=== PATIENT | male | born 1985 | race Caucasian/White ===

== ENCOUNTER 2019-11-07 15:58 | Emergency (ER) | payer BC, SELFPAY ==
--- NOTE | ~2019-11-07 | CT_ITS ---
EXAMINATION: CT BRAIN W/O DATE: 11/07/2019 19:03 INDICATION: Left-sided facial numbness TECHNIQUE: Computed tomography (CT) of the head was performed without intravenous contrast. The dose- length product was 681.00 mGy-cm. The mA was adjusted according to patient size. Iterative reconstruc tion technique was employed. COMPARISON: No prior studies for comparison. FINDINGS: Normal brain parenchymal volume for age. Normal hauser-white differentiation. No acute intrac ranial hemorrhage, infarction, mass or mass effect. No ventriculomegaly or midline shift. Midline sagittal images demonstrate a normal corpus callosum, c raniovertebral junction and sella turcica. Basilar cisterns are patent. Mild mucosal thickening of the ethmoid and sphenoid sinuses. No depressed skull fractures. IMPRESSION: 1. No acute intracranial abnormality. Reviewed, dictated and finalized at location A.
[2019-11-07 16:04] VITALS: BP 128/84; PULSE 102; RESP 18; TEMP 36.7; O2SAT 100
[2019-11-07 18:09] LABS: Basophils Absolute Auto 0.1 K/mm3 (0.0-0.1); Basophils Percent Auto 1.1 % (0.2-1.2); Eosinophils Absolute Auto 0.2 K/mm3 (0-0.3); Eosinophils Percent Auto 2.2 % (0-4.4); Hematocrit 49.9 % (42.0-52.0); Hemoglobin 16.9 g/dL (14.0-18.0); Immature Granulocyte Absolute 0.02 K/mm3 (0.00-0.031); Immature Granulocyte Percent A 0.2 % (0-0.5); Lymphocytes Absolute Auto 2.67 K/mm3 (0.9-3.2); Lymphocytes Percent Auto 28.1 % (18.3-44.2); Mean Corpuscular HGB Conc 33.9 g/dl (32-36); Mean Corpuscular Hemoglobin 30.2 pg (26-34); Mean Corpuscular Volume 89.1 fl (80-100); Mean Platelet Volume 10.8 fl (7.4-10.4); Monocytes Absolute Auto 0.7 K/mm3 (0.1-0.6); Monocytes Percent Auto 7.8 % (2.6-8.5); Neutrophils Absolute Auto 5.8 K/mm3 (1.3-6.7); Neutrophils Percent Auto 60.6 % (45.5-73.1); Platelet Count Result 286 k/mm3 (150-375); Red Cell Distribution Width 12.6 % (11.5-14.5); White Blood Count 9.5 K/mm3 (4.5-10.0)
[2019-11-07 18:14] LABS: Add Urine Microscopic? YES; Appearance Urine Clear (Clear); Bacteria Urine Trace /hpf; Bilirubin Urine Negative (Negative); Blood Urine Negative (Negative); Color Urine Yellow (Yellow); Glucose Urine UA Negative (Negative); Ketones Urine Negative (Negative); Leukocyte Esterase Ur Negative LEU/UL (Negative); Mucus Urine Rare /lpf; Nitrate Urine Negative (Negative); Protein Urine Negative (Negative); RBC Urine 0-2 /hpf (0-2); Specific Grav Ur 1.028 (1.001-1.035); WBC Urine 0-3 /hpf
[2019-11-07] MEDS: SODIUM CHLORIDE 0.9% IV 1,000 ML 999 ML IV CONT (18:14)
[2019-11-07 18:19] LABS: INR 0.9; Partial Thromboplastin Time 27.9 SECONDS (22.3-36.8)
[2019-11-07 18:21] LABS: Alanine Aminotransferase 31 U/L (4-50); Albumin Level 5.1 g/dL (3.5-5.1); Alkaline Phosphatase 73 U/L (38-126); Aspartate Amino Transferase 27 U/L (17-59); Bilirubin,Total 1.2 mg/dL (0.2-1.3); Blood Urea Nitrogen 15 mg/dL (9-20); Calcium 9.5 mg/dL (8.4-10.2); Carbon Dioxide 28 mmol/L (22-30); Chloride 102 mmol/L (98-107); Estimated CRCL calculation 85 ml/min; Estimated Glomerular Filt Rate > 60; Glucose 90 mg/dL (75-110); Potassium 4.5 mmol/L (3.4-5.0); Sodium 141 mmol/L (137-145)
--- NOTE | 2019-11-07 18:25 | PC.NURSE ---
Pt's anxiety level has increased since IV placed. Pt asking numerous times so how long does this stay in there? and sitting stiffly on the stretcher. Tolerated procedure well and calms with repeated support and explanations.
[2019-11-07 18:27] LABS: Amphetamine Screen Urine Negative (Negative); Barbiturate Screen Urine Negative (Negative); Benzodiazepines Screen Urine Negative (Negative); Cannabinoid Screen Urine Positive (Negative); Cocaine Screen Urine Negative (Negative); Methadone Screen Urine Negative (Negative); Opiate Screen Urine Negative (Negative); Phencyclidine Screen Urine Negative (Negative)
--- NOTE | 2019-11-07 19:13 | PC.NURSE ---
Report to [facility], to continue care. Awaiting disposition.
--- NOTE | 2019-11-07 19:20 | ED.GENADULT ---
HPI - General Adult General Chief complaint: Neuro Symptoms/Deficit <Jose Garcia PA-C - Last Filed: 11/07/19 19:26> Stated complaint: numbness on left side of face <Jose Garcia PA-C - Last Filed: 11/07/19 19:26> Time Seen by Provider: 11/07/19 16:39 <Jose Garcia PA-C - Last Filed: 11/07/19 19:26> Source: patient <Jose Garcia PA-C - Last Filed: 11/07/19 19:26> Mode of arrival: ambulatory <JUDY Lainez Last Filed: 11/07/19 19:26> Limitations: no limitations <JUDY Lainez Last Filed: 11/07/19 19:26> History of Present Illness HPI narrative: Patient is a 34-year-old male who presents to emergency department for evaluation of numbness and tingling that is been going on and off for the last week become more persistent over the last several days went to an urgent care was directed to emergency department. Patient denies any focal neurologic deficits has not been seen for this complaint has not taken anything for his symptoms <Jose Garcia PA-C - Last Filed: 11/07/19 19:26> Related Data Home medications: Home Medications Medication Instructions Recorded Confirmed No Home Medications 10/27/19 10/27/19 <Jose Garcia PA-C - Last Filed: 11/07/19 19:26> Allergies/adverse reactions: Allergies Allergy/AdvReac Type Severity Reaction Status Date / Time No Known Allergies Allergy Verified 11/07/19 16:35 <Jose Garcia PA-C - Last Filed: 11/07/19 19:26> Review of Systems Review of Systems: All systems reviewed & are unremarkable except as noted in HPI and below <Jose Garcia PA-C - Last Filed: 11/07/19 19:26> PMFSH Social History Social History: Social History Smoking status: Never smoker Gender identity (if verbalized by the patient): Male <JUDY Lainez Last Filed: 11/07/19 19:26> Exam Narrative: Exam Narrative: GENERAL: Well-appearing, well-nourished, and in no acute distress. HEAD: Normocephalic, atraumatic. EYES: PERRLA and EOMI. ENT: Nares clear, no rhinorrhea or epistaxis. Mucous membranes moist. Oropharynx without tonsillar hypertrophy exudate or other lesions. NECK: Supple. No adenopathy or masses. No carotid bruits or JVD CHEST: Clear to auscultation. No respiratory distress. No wheezes rales or rhonchi HEART: Regular rate and rhythm. No murmur heard. EXTREMITIES: Normal range of motion. No edema. SKIN: Warm, dry, no rash. NEURO: No focal deficits. Alert and oriented x3. Cranial nerves II through XII grossly intact. Normal speech and gait. Cerebellar intact PSYCH: Normal mood and affect. <JUDY Lainez Last Filed: 11/07/19 19:26> Course Course Emergency Course: Patient in the room in no distress aware of case findings treatment plan and diagnosis <JUDY Lainez Last Filed: 11/07/19 19:26> Vital Signs Vital signs: Vital Signs Temperature 98.1 F 11/07/19 16:04 Pulse Rate 102 H 11/07/19 16:04 Respiratory Rate 18 11/07/19 16:04 Blood Pressure 128/84 11/07/19 16:04 Pulse Oximetry 100 11/07/19 16:04 Temperature 98.1 F 11/07/19 16:04 Pulse Rate 72 11/07/19 19:43 Respiratory Rate 18 11/07/19 19:43 Blood Pressure 132/70 11/07/19 19:43 Pulse Oximetry 98 11/07/19 19:43 <JUDY Lainez Last Filed: 11/07/19 19:26> Vital Signs Temperature 98.1 F 11/07/19 16:04 Pulse Rate 102 H 11/07/19 16:04 Respiratory Rate 18 11/07/19 16:04 Blood Pressure 128/84 11/07/19 16:04 Pulse Oximetry 100 11/07/19 16:04 Temperature 98.1 F 11/07/19 16:04 Pulse Rate 72 11/07/19 19:43 Respiratory Rate 18 11/07/19 19:43 Blood Pressure 132/70 11/07/19 19:43 Pulse Oximetry 98 11/07/19 19:43 <Essie Oconnor MD - Last Filed: 11/08/19 10:50> Medical Decision Making MDM Narrative Medical decision making narrative
[2019-11-07 19:43] VITALS: BP 132/70; PULSE 72; RESP 18; O2SAT 98
== END 2019-11-07 19:44 | disposition home or self-care (01) ==
PROVIDERS: Emergency Medicine Emergency Medical Services; Emergency Provider Emergency Medicine; PCP Family Medicine
DX: R20.2 Paresthesia of skin (principal)
CPT/HCPCS: 36415; 70450; 80053; 80307; 81001; 85025; 85610; 85730; 96361; 96374; 99284; J0131; J7030

== ENCOUNTER 2020-10-18 17:08 | Emergency (ER) | payer BC, SELFPAY ==
[2020-10-18 17:12] VITALS: BP 146/90; PULSE 93; RESP 16; TEMP 36.2; O2SAT 99
--- NOTE | 2020-10-18 21:12 | ED.GENADULT ---
HPI - General Adult General Chief complaint: Unspecified Stated complaint: NOSE AND MOUTH AREA TINGLING Time Seen by Provider: 10/18/20 17:18 History of Present Illness HPI narrative: Patient is a 35-year-old gentleman who presents the emergency department with chief complaint of paresthesias around the nose. The patient states this been going on for about a week the patient states this progressed to his upper lip patient states that it feels as though the skin is smoother than normal. The patient denies fever denies chills denies focal deficit. Patient states that he did have chickenpox as a child reports that he has no visual changes Related Data Allergies Allergy/AdvReac Type Severity Reaction Status Date / Time No Known Allergies Allergy Verified 02/03/20 13:42 Review of Systems Review of Systems: Narrative: A 10 system review of systems was completed on the patient and is negative except for what is stated in the HPI. Nursing and ancillary documentation was reviewed. [facility] Social History Social History Smoking status: Never smoker Gender identity (if verbalized by the patient): Male Exam Narrative: Exam Narrative: GENERAL: Well-appearing, well-nourished, and in no acute distress. HEAD: Normocephalic, atraumatic. EYES: PERRLA and EOMI. ENT: Nares clear, no rhinorrhea or epistaxis. Mucous membranes moist. There is a small vesicle lesion present on the septum of the right nostril NECK: Supple. CHEST: Clear to auscultation. No respiratory distress. HEART: Regular rate and rhythm. No murmur heard. Normal peripheral pulses. ABDOMEN: Soft, nontender, nondistended, normal active bowel sounds. EXTREMITIES: Normal range of motion. No edema. SKIN: Warm, dry, no rash. NEURO: No focal deficits. Alert and oriented x3. PSYCH: Normal mood and affect. Course Course Emergency Course: The patient has no focal neurological deficit. Given that there is a small vesicular lesion and with the burning sensation and change in sensation in the area concerning for possible shingles. The patient will be started on valacyclovir and instructed for short-term follow-up with his primary care physician. Vital Signs Vital signs: Vital Signs Temperature 36.2 C L 10/18/20 17:12 Pulse Rate 93 10/18/20 17:12 Respiratory Rate 16 10/18/20 17:12 Blood Pressure 146/90 H 10/18/20 17:12 Pulse Oximetry 99 10/18/20 17:12 Temperature 36.2 C L 10/18/20 17:12 Pulse Rate 93 10/18/20 17:12 Respiratory Rate 16 10/18/20 17:12 Blood Pressure 146/90 H 10/18/20 17:12 Pulse Oximetry 99 10/18/20 17:12 Medical Decision Making Vital Signs Vital Signs: Vital Signs Temperature 36.2 C L 10/18/20 17:12 Pulse Rate 93 10/18/20 17:12 Respiratory Rate 16 10/18/20 17:12 Blood Pressure 146/90 H 10/18/20 17:12 Pulse Oximetry 99 10/18/20 17:12 Temperature 36.2 C L 10/18/20 17:12 Pulse Rate 93 10/18/20 17:12 Respiratory Rate 16 10/18/20 17:12 Blood Pressure 146/90 H 10/18/20 17:12 Pulse Oximetry 99 10/18/20 17:12 Discharge Plan Discharge Clinical Impression: Facial paresthesia Patient Disposition: Home, Self-Care Condition: Stable Instructions: Antibiotic Form, Shingles (ED), Paresthesia (ED) Prescriptions: New valacyclovir [Valtrex] 1 gram tablet 1,000 mg PO TID Qty: 21 RF: 0 No Action hydrocortisone acetate [Anucort-HC] 25 mg suppository 25 mg RECTAL BID Qty: 24 RF: 0 Follow-up/Referrals: Sushant Schwartz MD [Primary Care Provider] - Time of Disposition: 21:18
[2020-10-18 21:33] VITALS: BP 135/97; PULSE 85; RESP 16; O2SAT 95
[2020-10-18] MEDS: valACYclovir HCL 500 MG TABLET 1000 MG PO (21:35)
== END 2020-10-18 21:38 | disposition home or self-care (01) ==
PROVIDERS: Emergency Provider Emergency Medicine; PCP Family Medicine
DX: R20.2 Paresthesia of skin (principal)
CPT/HCPCS: 99283; A9270

== ENCOUNTER 2020-11-27 15:16 | Emergency (ER) | payer BC, SELFPAY ==
[2020-11-27] VITALS (7 sets, daily range): BP systolic 69–116; BP diastolic 45–77; PULSE 75–90; RESP 13–20; TEMP 36.2; O2SAT 99–100
--- NOTE | 2020-11-27 15:27 | ECG_ITS ---
Measurements Intervals [place] Rate: 85 P: 37 SD: 152 QRS: 85 QRSD: 94 T: 54 QT: 373 QTc: 446 Interpretive Statements SINUS RHYTHM ST ELEVATION IN ANTEROLATERAL LEADS- PROBABLY EARLY REPOLARIZATION ABNORMALITY MINIMAL Q WAVES- INFERIOR LEADS BASELINE ARTIFACT- AVR, AVL, AVF BORDERLINE ECG Electronically Signed On 11-27-2020 21:14:38 CDT by Suresh Jiang D.O.
[2020-11-27 15:41] LABS: Basophils Absolute Auto 0.1 K/mm3 (0.0-0.1); Basophils Percent Auto 0.9 % (0.2-1.2); Eosinophils Absolute Auto 0.1 K/mm3 (0-0.3); Eosinophils Percent Auto 2.2 % (0-4.4); Hematocrit 48.5 % (42.0-52.0); Hemoglobin 16.4 g/dL (14.0-18.0); Immature Granulocyte Absolute 0.02 K/mm3 (0.00-0.031); Immature Granulocyte Percent A 0.3 % (0-0.5); Lymphocytes Percent Auto 27.9 % (18.3-44.2); Mean Corpuscular HGB Conc 33.8 g/dl (32-36); Mean Corpuscular Hemoglobin 29.7 pg (26-34); Mean Corpuscular Volume 87.9 fl (80-100); Mean Platelet Volume 9.9 fl (7.4-10.4); Monocytes Absolute Auto 0.4 K/mm3 (0.1-0.6); Monocytes Percent Auto 6.2 % (2.6-8.5); Neutrophils Percent Auto 62.5 % (45.5-73.1); Platelet Count Result 257 k/mm3 (150-375); Red Blood Count 5.52 M/mm3 (4.6-6.20); Red Cell Distribution Width 13.1 % (11.5-14.5); White Blood Count 6.5 K/mm3 (4.5-10.0)
[2020-11-27 15:57] LABS: Anion Gap 15 mmol/L (8-16); Blood Urea Nitrogen 14 mg/dL (9-20); Calcium 9.7 mg/dL (8.4-10.2); Carbon Dioxide 23 mmol/L (22-30); Chloride 101 mmol/L (98-107); Estimated CRCL calculation 73 ml/min; Estimated Glomerular Filt Rate > 60; Glucose 157 mg/dL (65-110); Potassium 3.8 mmol/L (3.4-5.0); Sodium 139 mmol/L (137-145)
--- NOTE | 2020-11-27 18:37 | ED.DIZZY ---
HPI - Dizziness General Chief Complaint: Syncope Stated Complaint: NEAR SYNCOPE, TINGLING FOR OVER 2WKS Time Seen by Provider: 11/27/20 18:26 History of Present Illness HPI Narrative: Patient is a 35-year-old male who presents ER with near syncope. Patient reports he is in the waiting room to have an outpatient blood draw performed when he felt like he was going to pass out and things are starting to go black. He reports he then had his name called and he snapped out of it almost immediately. He reports when they went to draw his blood they thought he was white and thought he should come to the ER to be evaluated after consulting with the urgent care connected to [facility]. Patient is having no chest pain or shortness of breath or nausea or vomiting. Reports he did have some intermittent tingling in his arms over last couple weeks and is unsure why. Recently was treated for shingles in his nose. Patient also reports that the dizziness was nonrotational and without any nausea or vomiting. Patient has had nothing to eat or drink today. Related Data Home Medications Medication Instructions Recorded Confirmed No Home Medications 10/31/20 10/31/20 Allergies Allergy/AdvReac Type Severity Reaction Status Date / Time No Known Allergies Allergy Verified 11/27/20 18:23 Review of Systems Review of Systems: All systems reviewed & are unremarkable except as noted in HPI and below Constitutional: Constitutional: Denies chills, Denies fever(s) and Denies weakness ENT: Reports dizziness, Denies nasal congestion and Denies sore throat Cardiovascular: Cardiovascular: Denies chest pain and Denies radiating jaw, neck or arm pain Gastrointestinal: Gastrointestinal: Denies nausea and Denies vomiting Neurologic: Denies headache(s), Denies focal weakness and Reports numbness Comments: Near syncope [facility] Past Medical History Medical History (Updated 11/27/20 @ 21:03 by Rome Ballard MD) Esophageal reflux Surgical History Surgical History (Updated 11/27/20 @ 21:00 by Rome Ballard MD) No pertinent past surgical history Family History Family History (Updated 10/31/20 @ 09:16 by Maryjane Jang CMA) Mother Breast cancer Depression Social History Social History (Updated 10/31/20 @ 09:17 by Maryjane Jang CMA) Second hand tobacco smoke exposure: No Alcohol intake: never Substance use: former Gender identity (if verbalized by the patient): Male Exam Narrative: Exam Narrative: GENERAL: Well-appearing, well-nourished, and in no acute distress. HEAD: Normocephalic, atraumatic. EYES: PERRL and EOMI. ENT: Mucous membranes moist. Cerumen impaction bilaterally. TMs normal after evacuation of cerumen. CHEST: Clear to auscultation. No respiratory distress. HEART: Regular rate and rhythm. Normal peripheral pulses. ABDOMEN: Soft, nontender, nondistended. EXTREMITIES: Normal range of motion. No edema. SKIN: Warm, dry, no rash. NEURO: Alert and oriented x3. Normal coordination and no sensory deficit. Clear speech. Course Course Emergency Course: Patient with slight drop in orthostatics from sitting to standing. Asymptomatic. Hydrated. Earwax removed. Discharge home. Reevaluation(s) Reevaluation #1: Patient's blood pressure 69/48 is not accurate. I have readjusted the patient's blood pressure cuff and his blood pressure is 115/64 mmHg with a heart rate of 82. Date: 11/27/20 Time: 18:38 Vital Signs Vital signs: Vital Signs Temperature 97.2 F L 11/27/20 15:20 Pulse Rate 85 11/27/20 15:20 Respiratory Rate 18 11/27/20 15:20 Blood Pressure 105/45 L 11/27/20 15:20 Pulse Oximetry 100 11/27/20 15:20 Temperature 97.2 F L 11/27/20 15:20 Pulse Rate 78 11/27/20 20:11 Respiratory Rate 20 11/27/20 20:11 Blood Pressure 116/70 11/27/20 20:11 Pulse Oximetry 99 11/27/20 20:11 Procedures Ear Wax Removal Both Ears: Ear Wax Removal Date: 11/27/20 Ear
[2020-11-27] MEDS: SODIUM CHLORIDE 0.9% IV 1,000 ML 999 ML IV CONT (18:45)
== END 2020-11-27 21:38 | disposition home or self-care (01) ==
PROVIDERS: Emergency Provider Emergency Medicine; PCP Family Medicine
DX: R55 Syncope and collapse (principal); H61.23 Impacted cerumen, bilateral; K21.9 Gastro-esophageal reflux disease without esophagitis
CPT/HCPCS: 36415; 69210; 80048; 85025; 93005; 96360; 99284; J7030

== ENCOUNTER → 2023-02-04 10:50 | Outpatient (CLI) | payer BC, SELFPAY ==
--- NOTE | ~2023-02-04 | XR_ITS ---
XR chest 2V DATE: 02/04/2023 10:58 INDICATION: Chest pain TECHNIQUE: 2 views COMPARISON: None FINDINGS: Normal heart size. No hilar or mediastinal enlargement. No pulmonary infiltrate or consolid ation, pleural effusion or pulmonary vascular congestion or pneumothorax is detected. IMPRESSION: No active cardiopulmonary disease Reviewed, dictated and finalized at location B.
== END ==
PROVIDERS: PCP Family Medicine; Visit Provider Family Medicine
DX: R07.9 Chest pain, unspecified (principal)
CPT/HCPCS: 71046

== ENCOUNTER 2023-02-26 08:52 | Outpatient (CLI) | payer BC, SELFPAY ==
--- NOTE | ~2023-02-26 | NM_ITS ---
EXAMINATION: NM alexey stress w perfusion DATE: 02/26/2023 12:14 INDICATION: Chest pain TECHNIQUE: Rest images were obtained following intravenous administration of 10.0 mCi Tc99m tetrofosm in (Myoview). The patient was infused intravenously with Lexiscan (Regadenoson). Then, 80.4 mCi Tc99m tetrofosmin (Myoview) was administered intravenously, and stress images were obtained. Data was zoey nstructed into short axis and horizontal and vertical long axis SPECT images. Gated SPECT images were also obtained. COMPARISON: None. FINDINGS: There is no definite reversible or fixed perfusion abnormality to suggest ischemia or infar ction. There is normal left ventricular chamber size, wall motion and ejection fraction. Left ventr icular ejection fraction measures 56%. IMPRESSION: 1. Normal myocardial perfusion during stress. 2. Left ventricular ejection fraction measuring 56%. Reviewed, dictated and finalized at location A.
--- NOTE | 2023-02-26 09:03 | EST_ITS ---
Patient Info Name: Sukhjinder Fulton Age: 37 years : 1985 Gender: Male Ht: 69 in Wt: 185 lbs BSA: 2.04 m2 HR: 68 bpm BP: 129 / 81 mmHg Heart Rhythm: Left Bundle Branch Block Exam Date: 02/26/2023 10:55 AM Exam Location: [facility] Stress Patient Status: Outpatient Admit Date: 02/26/2023 Staff Ordering Physician: Sushant Schwartz MD Attending Provider: Sushant Schwartz MD Exercise Technologist: Virginia Morales CT Exam Type: CA stress alexey w NM Study Info Indications R07.89 - Other chest pain A regadenoson stress test was performed. Summary 1. 1. Inconclusive lexiscan stress test for ischemic ST changes by ECG criteria due to baseline LBBB. 2. 2. Stable hemodynamics throughout the test. 3. 3. Nuclear scan to follow and will be reported separately. Please correlate with it. 4. 4. Patient informed of the above results. Protocol: Lexiscan Stress ECG Details Stage: REST Duration (min): 0 min : 50 sec HR (bpm): 70 SBP (mmHg): 129 DBP (mmHg): 81 Stage: REST Duration (min): 22 min : 44 sec HR (bpm): 68 SBP (mmHg): 129 DBP (mmHg): 81 Stage: STAGE 1 Duration (min): 1 min : 0 sec HR (bpm): 96 SBP (mmHg): 130 DBP (mmHg): 84 Stage: RECOVERY Duration (min): 1 min : 0 sec HR (bpm): 105 SBP (mmHg): 130 DBP (mmHg): 84 Stage: RECOVERY Duration (min): 2 min : 0 sec HR (bpm): 93 SBP (mmHg): 130 DBP (mmHg): 84 Stage: RECOVERY Duration (min): 3 min : 0 sec HR (bpm): 94 SBP (mmHg): 132 DBP (mmHg): 84 Stage: RECOVERY Duration (min): 3 min : 42 sec HR (bpm): 92 SBP (mmHg): 132 DBP (mmHg): 84 Rest HR: 68 bpm Peak HR: 113 bpm Rest Sys BP: 129 mmHg Peak Sys BP: 132 mmHg Max Pred HR: 182 bpm % Max Pred HR: 62 % Target HR: 155 bpm Max RPP: 14,916 bpm*mmHg Termination Reason: Completed protocol Cardiac Symptoms: Shortness of breath Total Time: 1 min : 0 sec Rest [place] BP: 81 mmHg Peak [place] BP: 84 mmHg Total Dose: 0.4 mg Resting ECG Sinus rhythm, intermittent LBBB. Stress ECG No ST changes. Arrhythmias None. Report Signatures
== END 2023-02-26 08:53 | disposition home or self-care (01) ==
PROVIDERS: PCP Family Medicine; Visit Provider Family Medicine
DX: R93.1 Abnormal findings on diagnostic imaging of heart and coronary circulation (principal); R07.9 Chest pain, unspecified
CPT/HCPCS: 78452; 93017; A9502; J2785

== ENCOUNTER 2023-11-12 12:51 | Emergency (ER) | payer BC, SELFPAY ==
--- NOTE | ~2023-11-12 | XR_ITS ---
EXAMINATION: XR chest 2V 11/12/2023 13:29 INDICATION: Choking incident. PROCEDURE: 2 view chest COMPARISON: 02/04/2023 FINDINGS: The lungs are clear. The cardiomediastinal silhouette is within normal limits. There are no pleural effusions. There is no pneumothorax suspected. IMPRESSION: 1: NO ACUTE CARDIOPULMONARY DISEASE. Reviewed, dictated and finalized at location B.
[2023-11-12 12:52] VITALS: BP 130/95; PULSE 109; RESP 16; TEMP 36.6; O2SAT 98
--- NOTE | 2023-11-12 13:53 | ED.GENADULT ---
HPI - General Adult General Chief complaint: Unspecified Stated complaint: food bolus Time Seen by Provider: 11/12/23 13:30 History of Present Illness HPI narrative: 38-year-old male presents to the emergency room for evaluation of a suspected Swallowed foreign body. patient states that he was laying down while using a hamburger, began choking. Patient states that he choked and coughed up a hamburger. States since then he feels like there is food still lodged in his throat and in his lungs. Patient denies any shortness of breath or difficulty breathing. Patient is able to tolerate solids and fluids following the incident. Patient reports excessive belching. Related Data Home Medications Medication Instructions Recorded Confirmed aspirin 325 mg tablet (Gume 650 mg PO DAILY 11/10/23 Aspirin) Allergies Allergy/AdvReac Type Severity Reaction Status Date / Time No Known Allergies Allergy Verified 11/12/23 12:55 Review of Systems Review of Systems: ROS unremarkable except for noted in HPI PMFSH Past Medical History Medical History Esophageal reflux LBBB (left bundle branch block) Surgical History Surgical History No pertinent past surgical history Family History Family History Mother Breast cancer Depression Social History Social History Smoking status: Never smoker Second hand tobacco smoke exposure: No Alcohol intake: never Substance use: former Living arrangements: with family Gender identity (if verbalized by the patient): Male Exam Narrative: GENERAL: Well-appearing, well-nourished, no physical limitations, and in no acute distress. HEAD: Normocephalic, atraumatic. EYES: Conjunctivae normal, PERRLA and EOMI. ENT: No evidence of FB in airway. No airway inflammation NECK: Supple. CHEST: Clear to auscultation. No respiratory distress. No wheezes rales or rhonchi. HEART: Regular rate and rhythm. No murmur heard. Normal peripheral pulses. ABDOMEN: Soft, nontender, nondistended, normal active bowel sounds.: Normal external male/female exam. EXTREMITIES: Normal range of motion. No edema. No clubbing or cyanosis SKIN: Warm, dry, no rash. No noted wounds NEURO: No focal deficits. Alert and oriented x3. MAEW. CN's II-XI intact bilaterally, normal gait PSYCH: Cooperative. Normal mood and affect. Course Vital Signs Vital signs: Vital Signs Temperature 36.6 C 11/12/23 12:52 Pulse Rate 109 H 11/12/23 12:52 Respiratory Rate 16 11/12/23 12:52 Blood Pressure 130/95 H 11/12/23 12:52 Pulse Oximetry 98 11/12/23 12:52 Oxygen Delivery Room Air 11/12/23 12:52 Temperature 36.6 C 11/12/23 12:52 Pulse Rate 109 H 11/12/23 12:52 Respiratory Rate 16 11/12/23 12:52 Blood Pressure 130/95 H 11/12/23 12:52 Pulse Oximetry 98 11/12/23 12:52 Oxygen Delivery Room Air 11/12/23 12:52 Medical Decision Making Vital Signs Vital Signs: Vital Signs Temperature 36.6 C 11/12/23 12:52 Pulse Rate 109 H 11/12/23 12:52 Respiratory Rate 16 11/12/23 12:52 Blood Pressure 130/95 H 11/12/23 12:52 Pulse Oximetry 98 11/12/23 12:52 Oxygen Delivery Room Air 11/12/23 12:52 Temperature 36.6 C 11/12/23 12:52 Pulse Rate 109 H 11/12/23 12:52 Respiratory Rate 16 11/12/23 12:52 Blood Pressure 130/95 H 11/12/23 12:52 Pulse Oximetry 98 11/12/23 12:52 Oxygen Delivery Room Air 11/12/23 12:52 Imaging Data Radiologist's impression: Impressions Chest X-Ray 11/12/23 13:39 IMPRESSION: 1: NO ACUTE CARDIOPULMONARY DISEASE. Discharge Plan Discharge Clinical Impression: Globus sensation Patient Disposition: Home, Self-Care Condition: Stable Instructions: Ant
[2023-11-12] MEDS: BELLADONNA ALK/PHENOB ELIX 10 ML, MAG HYDROX/ALUMINUM HYD/SIMETH 30 ML, LIDOCAINE HCL 2... PO (14:26)
== END 2023-11-12 14:30 | disposition home or self-care (01) ==
PROVIDERS: Emergency Provider Nurse Practitioner Family; PCP Family Medicine
DX: R09.A2 Foreign body sensation, throat (principal); K21.9 Gastro-esophageal reflux disease without esophagitis; Z79.82 Long term (current) use of aspirin
CPT/HCPCS: 71046; 99283; A9270